=== PATIENT | male | born 1990 | race Caucasian/White ===

== ENCOUNTER → 2020-02-10 | Outpatient (CLI) | payer BC ==
--- NOTE | 2020-02-10 11:36 | RAD ---
EXAM DESCRIPTION: Pelvis CLINICAL HISTORY: 29 years Male, HIP PAIN RIGHT COMPARISON: None. TECHNIQUE: AP radiograph of the pelvis was performed. FINDINGS: The pelvic ring appears grossly intact on this single AP radiograph. No acute fracture or dislocation. Bilateral sacroiliac joints appear normal. Bilateral hip joints appear normal. IMPRESSION: Single AP radiograph of the pelvis demonstrates grossly intact pelvic ring. Electronically signed by: Carmen Anderson MD 02/10/2020 11:35 AM CDT
--- NOTE | 2020-02-10 11:37 | RAD ---
EXAM DESCRIPTION: Knee,Right Complete CLINICAL HISTORY: 29 years Male, PAIN IN RIGHT LKNEE TECHNIQUE: 4 views of the right knee were performed. COMPARISON: None available. FINDINGS: The visualized bones appear well mineralized. No acute fracture or dislocation. Small joint effusion. Bipartite patella is noted. The soft tissues appear grossly unremarkable. IMPRESSION: Bipartite patella. Small joint effusion. Electronically signed by: Carmen Anderson MD 02/10/2020 11:35 AM CDT
== END ==
LOC: RAD 09:24
PROVIDERS: ATTEND Orthopaedic Surgery
DX: M25.551 Pain in right hip (principal); Q74.1 Congenital malformation of knee; M25.461 Effusion, right knee

== ENCOUNTER → 2020-02-18 | Outpatient (CLI) | payer BC ==
--- NOTE | 2020-02-18 08:53 | MRI ---
EXAM DESCRIPTION: Knee,Right CLINICAL HISTORY: PCL SPRAIN, right knee pain, loss stability, PCL sprain COMPARISON: Knee radiographs 02/10/2020. TECHNIQUE: MRI of the right knee is performed with multiplanar multi sequence imaging, without intravenous contrast. FINDINGS: Bone and joint: Redemonstration of multipartite/tripartite patella with unfused ossification centers along the superolateral aspect of the patella. No focal bony contusion or acute fracture. Small knee joint effusion. Cartilage: Grade two chondrosis involves the medial knee compartment central weightbearing articular surfaces. Grade 1-2 chondrosis involves the lateral knee compartment. The the patellofemoral cartilage is intact aside from mild irregularity along the lateral patella facet periphery (overlying the unfused superior lateral patella ossicles). Medial meniscus: Intact Lateral meniscus: Intact Anterior cruciate ligament: Intact Posterior cruciate ligament: Intact, no focal tear or edema. Medial collateral ligament: Intact Lateral collateral ligament: Intact Popliteus tendon: Intact Biceps femoris tendon: Intact Iliotibial band: Intact Medial and lateral retinaculum: Intact Extensor mechanism: The distal quadriceps tendon is intact. The patella tendon is intact. Soft tissues: Small ganglion cyst adjacent to the medial meniscus posterior root and medial to the PCL tibial root measuring 8 mm (series 6 on image 26). No associated meniscus tear is identified on MRI. This may be related to a prior posterior joint capsular sprain. Mild edema within Hoffa's fat pad. Thin medial suprapatellar plica. No Faye's cyst. IMPRESSION: 1. Mild posterior knee joint capsule sprain with small ganglion cyst adjacent to the PCL tibial root. The PCL is intact. 2. Mild infrapatellar fat pad edema which may be related to contusion or impingement. 3. Multipartite patella. 4. Low-grade medial knee compartment chondrosis. Small knee joint effusion. 5. Intact menisci, cruciate and collateral ligaments. Electronically signed by: Rduy Vergara DO 02/18/2020 8:52 AM CDT
== END ==
LOC: MRI 07:08
PROVIDERS: ATTEND Orthopaedic Surgery
DX: S83.512A Sprain of anterior cruciate ligament of left knee, initial encounter (principal); M67.461 Ganglion, right knee; R60.0 Localized edema; Q74.1 Congenital malformation of knee; M94.261 Chondromalacia, right knee; M25.461 Effusion, right knee